=== PATIENT | male | born 1995 | race Hispanic/Latino ===

== ENCOUNTER 2018-11-29 10:43 | Emergency (ER) | payer OTHER | END 2018-11-29 11:28 | disposition home or self-care (01) | LOC: EDH 10:43 | DX: S36.69XA Other injury of rectum, initial encounter (principal); K64.4 Residual hemorrhoidal skin tags; K62.5 Hemorrhage of anus and rectum; I10 Essential (primary) hypertension; Y08.89XA Assault by other specified means, initial encounter; Y93.89 Activity, other specified; Y92.89 Other specified places as the place of occurrence of the external cause; Y99.8 Other external cause status | CPT/HCPCS: 82270 ==